=== PATIENT | female | born 1990 | race African-American/Black ===

== ENCOUNTER 2020-02-07 19:03 | Emergency (ER) | payer OTHER ==
[2020-02-07 20:22] LABS: #Basophils 0.1 thou/uL (0.0-0.2); #Lymphocytes 2.6 thou/uL (1.20-3.40); #Monocytes 0.5 thou/uL (0.11-0.59); #Neutrophils 6.4 thou/uL (1.40-6.50); %Basophils 0.8 % (0.0-1.0); %Eosinophils 0.1 % (0.0-10.0); %Lymphocytes 27.5 % (21.0-51.0); %Monocytes 5.1 % (0.0-10.0); %Neutrophils 66.5 % (42.0-75.0); Hemoglobin 11.2 g/dL (12.0-16.0); Mean Corpuscular HGB CONC 33.2 g/dL (32.0-36.0); Mean Corpuscular Hemoglobin 27.3 pg (27.0-31.0); Mean Corpuscular Volume 82.2 fL (78.0-98.0); Mean Platelet Volume 6.9 fL (7.4-10.4); Platelet Count 254 thou/uL (130-400); RBC Distribution Width 12.7 % (11.5-14.5); Red Blood Cell (RBC) Count 4.12 mill/uL (4.20-5.40); White Blood Cell (WBC) Count 9.6 thou/uL (4.8-10.8)
[2020-02-07 20:57] LABS: Bilirubin Negative (Negative); Blood, Urine Negative (Negative); Clarity Turbid (Clear); Glucose, Urine (Dipstick) Normal (Negative); Leukocyte Negative Leu/uL (Negative); Nitrite Negative (Negative); Protein, Urine (Dipstick) 20 mg/dL (Neg-Trace)
--- NOTE | 2020-02-07 23:00 | ULT ---
Transabdominal pelvic ultrasound with grayscale, color-flow and spectral Doppler imaging: HISTORY: Midline pelvic pain, vaginal spotting, nausea and vomiting FINDINGS: A single live intrauterine gestation is seen with measurements corresponding to an estimated gestatio nal age of 15 weeks and 6 days and CARI at 07/25/2020. The heart rate measures 140 beats per minute. Placenta is anteriorly located without evidence of placenta previa. Amniotic fluid is adequat e. measurements as follows: BPD: 3.20 cm, 16 weeks 0 days HC: 11.83 cm, 15 weeks 6 days AC: 9.79 cm, 15 weeks 6 days FL: 1.98 cm, 15 weeks 6 days IMPRESSION: Single live IUP of 15 weeks 6 days estimated gestational age and CARI at 07/25/2020
== END 2020-02-08 00:31 | disposition home or self-care (01) ==
LOC: ERS 19:03
DX: O23.591 Infection of other part of genital tract in pregnancy, first trimester (principal); Z3A.15 15 weeks gestation of pregnancy
CPT/HCPCS: 36415; 76856; 81003; 84702; 85025; 86900; 86901; 93976